=== PATIENT | female | born 1950 | race Caucasian/White ===

== ENCOUNTER 2017-07-01 08:46 | Emergency (ER) | payer MEDICARE ==
[~2017-07-01] VITALS: Ht 170.2 cm; Wt 81.7 kg
[2017-07-01] MEDS ORDERED: IMURAN 50MG TAB50 M1 PO (09:10)
[2017-07-01] MEDS ORDERED: CHLORZOXAZONE500 MG PO (09:12)
[2017-07-01] MEDS ORDERED: FOLIC ACID1 MG PO (09:13)
[2017-07-01] MEDS ORDERED: NEURONTIN 300300 M1 PO (09:13)
[2017-07-01] MEDS ORDERED: TRAMADOL 50 MG50 MG PO (09:17)
[2017-07-01] MEDS ORDERED: DAYPRO600 MG PO (09:17)
[2017-07-01] MEDS ORDERED: PREDNISONE 10 M10 MG PO (09:17)
[2017-07-01] MEDS ORDERED: HYDROXYCHLOROQ200 M1 PO (09:19)
[2017-07-01] MEDS ORDERED: HUMIRA40 MG/0.1 SUBQ (09:20)
[2017-07-01] MEDS ORDERED: PROLOPRIM100 MG PO (09:20)
[2017-07-01] MEDS ORDERED: PRAVACHOL20 MG PO (09:20)
[2017-07-01] MEDS ORDERED: HYDROCODON-ACE1 EAC7 PO (10:59)
[2017-07-01 12:00] VITALS: BP 148/72
== END 2017-07-01 12:00 | disposition home or self-care (01) ==
LOC: M.ERS 08:46
DX: S42.391A Other fracture of shaft of right humerus, initial encounter for closed fracture (principal); M79.7 Fibromyalgia; Z88.0 Allergy status to penicillin; W01.0XXA Fall on same level from slipping, tripping and stumbling without subsequent striking against object, initial encounter; Y93.89 Activity, other specified; Y92.89 Other specified places as the place of occurrence of the external cause; Y99.8 Other external cause status

== ENCOUNTER 2020-10-27 12:09 | Emergency (ER) | payer MEDICARE ==
[~2020-10-27] VITALS: Ht 167.6 cm; Wt 81.7 kg
[~2020-10-27 12:09] MED LIST: CHLORZOXAZONE500 MG PO; DAYPRO600 MG PO; FOLIC ACID1 MG PO; HUMIRA40 MG/0.1 SUBQ; HYDROCODON-ACE1 EAC7 PO; HYDROXYCHLOROQ200 M1 PO; IMURAN 50MG TAB50 M1 PO; NEURONTIN 300300 M1 PO; PRAVACHOL20 MG PO; PREDNISONE 10 M10 MG PO; PROLOPRIM100 MG PO; TRAMADOL 50 MG50 MG PO
[2020-10-27] MEDS ORDERED: NORCO5 PO (13:11)
[2020-10-27 13:40] VITALS: BP 110/70
== END 2020-10-27 13:42 | disposition home or self-care (01) ==
LOC: M.ERS 12:09
DX: S52.501A Unspecified fracture of the lower end of right radius, initial encounter for closed fracture (principal); M79.7 Fibromyalgia; M06.9 Rheumatoid arthritis, unspecified; Z96.651 Presence of right artificial knee joint; Z98.890 Other specified postprocedural states; Z79.1 Long term (current) use of non-steroidal anti-inflammatories (NSAID); Z79.899 Other long term (current) drug therapy; Z88.2 Allergy status to sulfonamides; W19.XXXA Unspecified fall, initial encounter; Y93.89 Activity, other specified; Y92.89 Other specified places as the place of occurrence of the external cause; Y99.8 Other external cause status